=== PATIENT | male | born 1960 | race Caucasian/White ===

== ENCOUNTER 2019-01-01 08:16 | Emergency (ER) | payer BC ==
[2019-01-01] MEDS ORDERED: Lidocaine 1% 20 ML MDV INJECT ONE (08:42)
[2019-01-01] MEDS ORDERED: Bacitracin Oint 1 GM U/D Packet TOP ONE (08:42)
--- NOTE | 2019-01-01 08:45 | EDM.PDOC ---
ED HPI GENERAL MEDICAL PROBLEM - General Chief Complaint: Laceration Stated Complaint: GASH TO RIGHT SIDE OF FORHEAD Time Seen by Provider: 01/01/19 08:42 Source of Information: Reports: Patient History Limitations: Reports: No Limitations - History of Present Illness INITIAL COMMENTS - FREE TEXT/NARRATIVE: pt arrived after a fall at home last nite. He has a 2 inch laceration above the rt eye. He believes he was knocked out at the time. He had been drinking. Onset: Other (last nite) Duration: Hour(s): Location: Reports: Head, Face - Related Data Allergies Allergy/AdvReac Type Severity Reaction Status Date / Time No Known Allergies Allergy Verified 01/01/19 08:35 Past Medical History - Infectious Disease History Infectious Disease History: Reports: Chicken Pox - Past Surgical History Musculoskeletal Surgical History: Reports: Other (See Below) Other Musculoskeletal Surgeries/Procedures:: back surgery Social & Family History - Tobacco Use Smoking Status *Q: Never Smoker - Caffeine Use Caffeine Use: Reports: Soda - Alcohol Use Days Per Week of Alcohol Use: 2 Number of Drinks Per Day: 2 Total Drinks Per Week: 4 Date of Last Drink: 12/31/18 - Recreational Drug Use Recreational Drug Use: No ED ROS GENERAL - Review of Systems Review Of Systems: See Below Constitutional: Reports: No Symptoms HEENT: Reports: Other (laceration above the rt eye. ) Respiratory: Reports: No Symptoms Cardiovascular: Reports: No Symptoms Endocrine: Reports: No Symptoms GI/Abdominal: Reports: No Symptoms : Reports: No Symptoms Musculoskeletal: Reports: No Symptoms Neurological: Reports: Other (pt was knocked out at the time of the incident. ) ED EXAM, SKIN/RASH Exam: See Below Text/Narrative:: pt has been drinking and he fell and has a 2.5 inch laceration above his rt eye. This is deep to the subq. He has no eye injury. He was knocked out at the time. Exam Limited By: No Limitations General Appearance: Alert, Mild Distress, Other (pupils are equal and reactive. ) Ears: Normal TMs Nose: Normal Inspection Throat/Mouth: Normal Inspection Head: Other (pt has the laceration above the rt eye. ) Respiratory/Chest: No Respiratory Distress Cardiovascular: Regular Rate, Rhythm GI/Abdominal: Soft (Male) Exam: Deferred Rectal (Males) Exam: Deferred Back Exam: Normal Inspection Extremities: Normal Inspection Neurological: Alert, Oriented, Normal Cognition Psychiatric: Anxious Course - Vital Signs Last Recorded V/S: Last Vital Signs Temp 35.7 C 01/01/19 08:41 Pulse 79 01/01/19 08:41 Resp 16 01/01/19 08:41 BP 135/66 01/01/19 08:41 Pulse Ox 95 01/01/19 08:41 - Orders/Labs/Meds Orders: Active Orders 24 hr Category Date Time Status Head wo Cont [CT] Stat Exams 01/01/19 08:40 Ordered Meds: Medications Discontinued Medications Generic Name Dose Route Start Last Admin Trade Name Martinez PRN Reason Stop Dose Admin Bacitracin 1 dose 01/01/19 08:42 01/01/19 09:10 Bacitracin Oint 1 Gm TOP 01/01/19 08:43 1 dose ONETIME ONE Administration Lidocaine HCl 20 ml 01/01/19 08:42 01/01/19 09:11 Xylocaine 1% INJECT 01/01/19 08:43 20 ml ONETIME ONE Administration - Re-Assessments/Exams Free Text/Narrative Re-Assessment/Exam: 01/01/19 09:29 area was cleansed well and irrigated with saline. The edges were trimmed and the wound was infiltrated with lidocaine. The wound was brought together in a layered fashion. The subq was closed with 5-0 chromic. The skin was brought togetyher with 6-0 prolene. This happened last nite so will cover with antibiotics due to the depth of the wound. bacatracin was applied and a pressure dressing was applied. Departure - Departure Time of Disposition: 10:25 Disposition: Home, Self-Care 01 Condition: Fair Clinical Impression: Laceration, Loss of consciousness - Discharge Information Referrals: PCP,None [Primary Care Provider] - Forms: ED Department Discharge Care Plan Goals: no further ointments, apply a dry dressing, keflex 500mg tid for 1 week, tylenol or motrin for pain, suture removal in 1 week. - My Orders Last 24 Hours: My Active Orders 01/01/19 08:40 Head wo Cont [CT] Stat - Assessment/Plan Last 24 Hours: My Active Orders 01/01/19 08:40 Head wo Cont [CT] Stat
== END 2019-01-01 10:30 | disposition home or self-care (01) ==
LOC: JP.ED 08:16
DX: S06.9X9A Unspecified intracranial injury with loss of consciousness of unspecified duration, initial encounter (principal); S01.81XA Laceration without foreign body of other part of head, initial encounter; W19.XXXA Unspecified fall, initial encounter; Y92.009 Unspecified place in unspecified non-institutional (private) residence as the place of occurrence of the external cause
CPT/HCPCS: 12053; 70450; 99284-25